=== PATIENT | male | born 1995 | race Caucasian/White ===

== ENCOUNTER → 2017-05-18 | Outpatient (CLI) | payer BC ==
[~2017-05-18] MED LIST: CYM/30 PO; LMC/150 PO; TRAZ50TA35 PO
--- NOTE | 2017-05-18 16:18 | DIAGNOSTIC IMAGING REPORT ---
RIGHT WRIST MIN 3 VIEWS ROUTINE, RIGHT HAND MIN 3 VIEWS ROUTINE CLINICAL HISTORY: INJURY OF R HAND INCLUDING FINGERS Right. Right wrist pain. COMPARISON STUDY: None. FINDINGS: No fracture or dislocation. No radiopaque foreign bodies. Mild soft tissue swelling within the dorsum of the hand. IMPRESSION: No fracture or dislocation within the right hand or right wrist. Electronically signed by: John Mcdonald M.D. 05/18/2017 4:17 PM Dictated Date/Time: 05/18/2017 4:13 PM
== END | disposition home or self-care (01) ==
LOC: C.RAD1850 16:00
PROVIDERS: ATTEND Family Medicine
DX: S69.90XA Unspecified injury of unspecified wrist, hand and finger(s), initial encounter (principal); X58.XXXA Exposure to other specified factors, initial encounter